=== PATIENT | female | born 1990 | race Caucasian/White ===

== ENCOUNTER 2017-01-09 09:51 | Inpatient (IN) ==
[2017-01-09] MEDS ORDERED: Metoclopramide 10 MG/2 ML VIAL IVP PRN (10:23)
[2017-01-09] MEDS ORDERED: Famotidine 20 MG/2 ML VIAL IVP PRN (10:23)
[2017-01-09] MEDS ORDERED: Naloxone 0.4 MG/ML INJ IVP PRN (10:23)
[2017-01-09] MEDS ORDERED: Ringers Solution, Lactated 1,000 ML IVC SCH (10:30)
[2017-01-09 10:42] LABS: Basophils % 0.4 %; Eosinophils # 0.1 K/mcL (0.0-0.6); Eosinophils % 0.9 %; Hematocrit 36.4 % (35.3-44.9); Hemoglobin 12.1 g/dL (11.5-15.4); Immature Granulocytes % 0.7 % (0-4); Lymphocytes # 1.8 K/mcL (0.6-4.6); Lymphocytes % 20.7 %; Mean Corpuscular HGB Conc 33.2 g/dL (31.6-35.5); Mean Corpuscular Hemoglobin 31.9 pg (28.0-33.3); Mean Platelet Volume 10.6 fL (9.4-12.4); Monocytes # 0.9 K/mcL (0.0-1.3); Monocytes % 10.8 %; Neutrophils # 5.7 K/mcL (1.6-8.9); Platelet Count 176 K/mcL (140-400); Red Blood Count 3.79 M/mcL (3.82-4.97); Red Cell Distribution Width 12.5 % (11.5-14.5); Segmented Neutrophils % 66.5 %
--- NOTE | 2017-01-09 10:47 | OB/GYN History & Physical ---
Date of Encounter: 01/09/17 Time of Encounter: 10:30 Assessment and Plan (1) 39 weeks gestation of Current visit: Yes Status: Acute (2) Elective induction of labor planned Current visit: Yes Status: Acute - NST assessment. - IV fluids. - Cytotec. - Pitocin if needed. - Epidural consult. - UDS. - Clear liquid diet. History of Present Illness Chief complaint: Induction of Labor HPI: Ms. Millan is a 26 year old female at 39 3/7 weeks gestation that presents for induction of labor.She admits to good movement. She denies any vaginal fluid leakage or bleeding. She denies contractions, headaches, vision changes, chest pain, nausea, vomiting, fever, chills, dysuria, or diarrhea. GBS: negative HepBSAg: Non-reactive (07/06/16) HIV Ag/Ab: non-reactive T. Pallidum Ab: negative Rubella Ab: positive Varicella Ab: positive Blood type: A+ Past Med Surg Social Fam HX - Past Medical History Medical history: no medical history Psychiatric history: no psych history - Past Surgical History Surgical History: other - Social History Smoking Status: Never smoker Smokeless Tobacco Status: No Alcohol use: none Drug use: none - Family History Mother Living Status: Hx Family Cancer: Yes Obstetrical History - Pregnancies : 1 Para: 0 Term: 0 : 0 Ab's: 0 Livin Medications and Allergies Vit/Iron Fumarate/FA [ Tablet] 1 each PO DAILY 01/09/17 [ History] 3 Allergy/AdvReac Type Severity Reaction Status Date / Time No Known Allergies Allergy Verified 01/09/17 10:52 Exam - Vital Signs Vital signs: BP: 129/71 HR: 81 FHR: 133 [place]: 38 - Constitutional Constitutional: well developed, well nourished, no acute distress, average body habitus - Lungs Respiratory exam: CTAB - Cardiovascular Cardiovascular exam: RRR, +S1, +S2 - Extremities Extremities exam: full ROM, normal capillary refill, normal inspection, radial pulses palpable and symmetrical Deep Tendon Reflex Grade: 2+ Normal - Cervix Dilation: 3 Effacement: 70 Station: -1 Results Result Diagrams: 01/09/17 10:30 Abnormal lab results RBC 3.79 M/mcL (3.82-4.97) L 01/09/17 10:30 All other labs normal. - VTE Reasons for not Prescribing Prophylaxis: Treatment not Indicated - Low risk for VTE - Attending Attestation I examined this patient and my medical decision-making was reviewed with the Resident Physician. I agree with the documented findings, disposition and treatment plan as described except to the extent set forth below. Deniz France
[2017-01-09 10:52] LABS: Amphetamine Screen,Urine Negative ng/mL (Cutoff=1000); Barbiturate Screen,Urine Negative ng/mL (Cutoff=200); Benzodiazepines Screen,Urine Negative ng/mL (Cutoff=200); Cannabinoid Screen,Urine Negative ng/mL (Cutoff = 50); Cocaine Screen,Urine Negative ng/mL (Cutoff= 300); Opiate Screen,Urine Negative ng/mL (Cutoff=300); Phencyclidine Screen,Urine Negative ng/mL (Cutoff=25)
[2017-01-09] MEDS ORDERED: miSOPROStol 100 MCG TABLET PO STA (10:56)
[2017-01-09] MEDS ORDERED: Terbutaline 1 MG/ML VIAL SQ ONE ×3 (12:50→20:42)
--- NOTE | 2017-01-09 12:58 | Anesthesia Evaluation PreOp ---
Date of Encounter: 01/09/17 Time of Encounter: 12:52 - Past History Planned Operation: shay Cardiac History: Denies any Significant Hx Pulmonary History: Denies Any Significant HX THEORETICAL PHYSICS TEACHER History: Denies Any Significant HX Other Medical History: Denies Any Significant HX Anesthesia History: No Prior Anesthetic Complications, Past Anesthesia (no past anesthetics, no family history of anesthetic problems) : Yes (, 39 plus 3) Alcohol Use: none Drug use: none Medications and Allergies Vit/Iron Fumarate/FA [ Tablet] 1 each PO DAILY 01/09/17 [ History] 3 Allergy/AdvReac Type Severity Reaction Status Date / Time No Known Allergies Allergy Verified 01/09/17 10:52 - Meds/Allergy Pre-op Review Medications Reviewed: Yes Allergies Reviewed: Yes Anesthesia Results - Labs 01/09/17 10:30 Anesthesia Exam O2 Sat Height 1.68 m Weight 85.7 kg Height: 66 Weight: 85 - HEENT Pupil (Motor): Pupils equal Mallampati: II Teeth: Normal Oral Opening: Greater than 3 - THEORETICAL PHYSICS TEACHER LOC: Oriented THEORETICAL PHYSICS TEACHER Motor: Normal RUE, Normal LUE, Normal RLE, Normal LLE, Normal Face THEORETICAL PHYSICS TEACHER Sensory: Normal: RUE, LUE, RLE, LLE, Face - Cardiac Rhythm: Regular Murmur: None JVD: No Carotid Bruit: No - Pulmonary Breath Sounds: bilateral Clear Respiratory Effort: Symmetrical Anesthesia Assess/Plan ASA Score: 2 Modified [place] Scale for Level of Consciousness: Cooperative, oriented, and tranquil Anesthetic Plan: Regional Monitoring Plan: Standard Monitors
--- NOTE | 2017-01-09 15:15 | OB Labor Progress Note ---
Date of Encounter: 01/09/17 Time of Encounter: 15:13 Labor Progress Note - Subjective Subjective: Patient resting in bed. Discussed POC with patient. Patient denies questions or concerns. - Cervix Cervix: 5/70/-1 - Heart Tones Heart Tones: 135 bpm moderate variability +15x15 accels no decels noted. - Alexis Alexis: 2-3 min apart - Interventions Interventions: SVE, AROM small amount of clear fluid noted. IUPC placed without difficulty. - Plan Plan: Continue labor management. Patient may have nubain or epidural when desires
--- NOTE | 2017-01-09 17:29 | OB Labor Progress Note ---
Date of Encounter: 01/09/17 Time of Encounter: 17:27 Labor Progress Note - Subjective Subjective: Patient resting in bed. Patient reports feeling increased pressure. - Cervix Cervix: 6/100/0 - Heart Tones Heart Tones: 135 bpm moderate variability +15x15 accels no decels noted. Cat. 1 tracing. - [place]: 2.5-3 min apart - Interventions Interventions: SVE - Plan Plan: Continue labor management.
[2017-01-09] MEDS ORDERED: *HR* FentaNYL (PF) 100 MCG/2 ML VIAL ONE (19:45)
[2017-01-09] MEDS ORDERED: Epidural Premix (fent/bupiv) 110 ML EP ONE (19:46)
[2017-01-09] MEDS ORDERED: *HR* Ropivacaine/PF 0.2% 10 ML AMPUL ONE (19:46)
--- NOTE | 2017-01-09 20:15 | Anesthesia Procedures ---
Date of Encounter: 01/09/17 Time of Encounter: 20:13 Procedures: Anesthesia - Epidural/Spinal Patient ID/Chart reviewed: Yes Patient examined: Yes OB Eval: Contractions: Non-stressed pattern Consent Obtained: Yes Supplemental Oxygen: None/Room Air Site Prep: Aseptic Technique Patient position: upright Local Anesthetic: Lidocaine 1% Amount of Local Anesthetic used: 3 Touhy Needle Gauge: 18 Touhy Needle Depth (cm): 5 Catheter Depth at Skin (cm): 10 Test Dose (1.5% Lido + Epi): Volume given (mls): 3 Test Dose Result: Positive Loading Dose: Fentanyl (mcg): 100 Loading Dose: Other: 5ml 0.2% ropivicaine, 3ml nss Loading Dose Administered: Thru Touhy Needle Infusion Med: 0.125% Bupivacaine w/ 2 mcg/ml Fentanyl Infusion Rate (mls/hr): [address]: Tegaderm Interspace Used: L3-L4 Loss of Resistance (ESMER): Yes Blood: No CSF: No Paresthesia: No
[2017-01-09] MEDS ORDERED: Oxytocin 20 units/ LR 1000 mL 20 UNIT/1,000 ML BAG IVC ONE (20:47)
--- NOTE | 2017-01-09 22:00 | OB Labor Progress Note ---
Date of Encounter: 01/09/17 Time of Encounter: 23:00 Labor Progress Note - Subjective Subjective: patient doing well not feeling contractions baby better after terbutaline due to tachsystole contractions coming back now - Cervix Cervix: 990/0 - Heart Tones Heart Tones: FHT's 140' reactive - Zuehl Zuehl: contractions every 2-3 min irregular - Plan Plan: continue current care if she does not make cervical change in the next 2 hrs will augment with pitocin
[2017-01-10] MEDS ORDERED: Epidural Premix (fent/bupiv) 110 ML EP ONE (02:25)
--- NOTE | 2017-01-10 04:24 | OB/GYN Procedure Note ---
Delivery - Delivery Date: 01/10/17 Provider: Eloy France Intrapartum events: none Delivery induction: misoprostol Delivery augmentation: rupture of membranes Delivery monitor: external FHT, external uterine, internal FHT, internal uterine Anesthesia: epidural Estimated Blood Loss: 100 - Infant (s) Infant A Delivery Date: 01/10/17 Delivery Time: 03:42 Presentation: vertex Position: KAREEM Route of delivery: Gender: Male Viability: Viable Pounds: 8 Ounces: 10 Weight Gram: 3.91 kg at 1 minute: 8 at 5 mins: 9 Shoulder Dystocia: not encountered Specimens collected: cord blood Placenta: spontaneous Cord: 3 umbilical vessels - Repair Episiotomy: none Laceration Description: Perineal - 1st Degree - Complications Delivery complications: none - Disposition Mom disposition: stable in LDR disposition: stable in LDR - Comments Comments: Patient is a 26-year-old 1 para 0 at 39-0/7 weeks who presented for induction of labor secondary to term with favorable cervix. Patient is 33-4 cm on admission and by mouth Cytotec was placed. Patient was artificially ruptured when she was 5 cm clear fluid noted. Patient progressed appropriately patient became complete and pushed for a short period of time delivering a viable male in right occiput anterior presentation at 0 342. There was no nuchal cord, there was terminal meconium, infant was suctioned on the abdomen, Apgars 8 at 1 minute, 9 at 5 months, weight was 8 lbs. 10 oz. Placenta was then delivered spontaneously with three-vessel cord burring machine operator Dr. France, first press operator PGY1, anesthesia was epidural, estimated blood loss 100 mL. Patient had a first-degree perineal laceration repaired with 3-0 Vicryl in usual fashion cervix and vagina was visualized intact. tolerated the delivery well she will be observed 2 hours before being taken floor.
[2017-01-10] MEDS ORDERED: Ibuprofen 600 MG TABLET PO PRN (05:40)
[2017-01-10] MEDS ORDERED: Acetaminophen 325 MG TABLET PO PRN (05:40)
[2017-01-10] MEDS ORDERED: Oxytocin 20 units/ LR 1000 mL 20 UNIT/1,000 ML BAG IVC SCH (05:40)
[2017-01-10] MEDS ORDERED: Measles/Mumps/Rubella Vacc 0.5 ML VIAL SQ PRN (05:40)
[2017-01-10] MEDS: Prenatal Vit/FA 1 EACH TABLET PO SCH (08:54)
[2017-01-11 05:14] LABS: Basophils # 0.1 K/mcL (0.0-0.2); Basophils % 0.3 %; Eosinophils # 0.2 K/mcL (0.0-0.6); Eosinophils % 1.3 %; Immature Granulocytes % 0.7 % (0-4); Lymphocytes # 3.1 K/mcL (0.6-4.6); Lymphocytes % 18.7 %; Mean Corpuscular HGB Conc 33.2 g/dL (31.6-35.5); Mean Corpuscular Hemoglobin 32.1 pg (28.0-33.3); Mean Corpuscular Volume 96.6 fL (83.0-100.0); Mean Platelet Volume 10.7 fL (9.4-12.4); Monocytes # 1.4 K/mcL (0.0-1.3); Monocytes % 8.5 %; Platelet Count 150 K/mcL (140-400); Red Blood Count 3.21 M/mcL (3.82-4.97); Red Cell Distribution Width 12.9 % (11.5-14.5); Segmented Neutrophils % 70.5 %
[2017-01-11 05:15] LABS: Hemoglobin 10.3 g/dL (11.5-15.4); Neutrophils # 11.6 K/mcL (1.6-8.9)
--- NOTE | 2017-01-11 08:00 | Discharge Summary ---
Date of Encounter: 01/11/17 Time of Encounter: 07:47 - Discharge Diagnosis (1) 39 weeks gestation of Priority: Secondary Status: Resolved (2) Status post vaginal delivery Priority: Primary Status: Acute Comments: Pt meeting all milestones. She desires discharge home today. - Discharge Medications Prescriptions: Ibuprofen [Motrin] 600 mg PO Q6HR PRN #60 tablet PRN Reason: Cramping Docusate [Colace] 100 mg PO BID #30 capsule Ferrous Sulfate 325 mg PO DAILY #30 tablet Home Medications: Vit/Iron Fumarate/FA [ Tablet] 1 each PO DAILY 01/09/17 [ History] Docusate [Colace] 100 mg PO BID #30 capsule 01/11/17 [Rx] Ferrous Sulfate 325 mg PO DAILY #30 tablet 01/11/17 [Rx] Ibuprofen [Motrin] 600 mg PO Q6HR PRN #60 tablet 01/11/17 [Rx] Allergies/Adverse Reactions: 3 Allergy/AdvReac Type Severity Reaction Status Date / Time No Known Allergies Allergy Verified 01/09/17 10:52 Data Procedures and tests throughout hospitalization: Laboratory Tests 01/09/17 01/09/17 01/11/17 10:30 10:30 04:50 WBC 8.5 16.4 H D RBC 3.79 L 3.21 L Hgb 12.1 10.3 L D Hct 36.4 31.0 L MCV 96.0 96.6 MCH 31.9 32.1 MCHC 33.2 33.2 RDW 12.5 12.9 Plt Count 176 150 MPV 10.6 10.7 Immature Gran % 0.7 0.7 Seg Neutrophils % 66.5 70.5 Lymphocytes % 20.7 18.7 Monocytes % 10.8 8.5 Eosinophils % 0.9 1.3 Basophils % 0.4 0.3 Neutrophils # 5.7 11.6 H Lymphocytes # 1.8 3.1 Monocytes # 0.9 1.4 H Eosinophils # 0.1 0.2 Basophils # 0.0 0.1 Immature Plt Fraction 6.0 Urine Opiates Screen Negative Ur Barbiturates Screen Negative Ur Phencyclidine Scrn Negative Ur Amphetamines Screen Negative U Benzodiazepines Scrn Negative Urine Cocaine Screen Negative U Marijuana (THC) Screen Negative Labs on day of discharge: Labs from last 24 hours 01/11/17 04:50 WBC 16.4 H D RBC 3.21 L Hgb 10.3 L D Hct 31.0 L MCV 96.6 MCH 32.1 MCHC 33.2 RDW 12.9 Plt Count 150 MPV 10.7 Immature Gran % 0.7 Seg Neutrophils % 70.5 Lymphocytes % 18.7 Monocytes % 8.5 Eosinophils % 1.3 Basophils % 0.3 Neutrophils # 11.6 H Lymphocytes # 3.1 Monocytes # 1.4 H Eosinophils # 0.2 Basophils # 0.1 Date of admission: 01/09/17 09:51 Primary care physician: Debby Mcdowell CNP Consults: 01/10/17 05:40 Consult to Chemical Process Engineer [CONS] Routine Comment: Vaginal delivery, consult needed Discharging clinician: Taco Khan Anticipated date of discharge: 01/11/17 - Patient Status Disposition: Home, Self-Care Condition: Good Functional capacity at discharge: independent ambulation Overall status at discharge: patient is not back to baseline - Discharge Instructions Instructions: Anemia (GEN) Follow Up With: Debby Mcdowell CNP [Primary Care Provider] - Eloy France DO [Partnered Physician] - - Diet and Activity Activity: resume usual activities as tolerated Diet: regular diet Hospital Course Reason for admission: induction of labor Delivery: Episiotomy: none Laceration: 1st degree Other procedures: none complications: perineal laceration Discharge diagnosis: IUP at term delivered baby: male Hospital course: Ms. Millan is a 26 year old female who presented at 39 3/7 weeks gestation for induction of labor. She admitted to good movement. and denied any vaginal fluid leakage or bleeding. Patient was 33-4 cm on admission and by mouth Cytotec was placed. Patient was artificially ruptured when she was 5 cm clear fluid noted. Patient progressed appropriately patient became complete and pushed for a short period of time delivering a viable male infant in right occiput anterior presentation at 0 342. There was no nuchal cord, there was terminal meconium, was suctioned on the abdomen, Apgars 8 at 1 minute, 9 at 5 months, infant weight was 8 lbs. 10 oz. Placenta was then delivered spontaneously with three-vessel cord hydraulic technician Dr. France, digital marketing assistant PGY1, anesthesia was epidural, estimated blood loss 100 mL. Patient had a first-degree perineal laceration repaired with 3-0 Vicryl in usual fashion cervix and vagina was visualized intact. tolerated the delivery well she will be observed 2 hours before being taken floor. When seen today, she says that she is doing well and in good mood. She says the baby is doing well and that she is currently breast-feeding. She says her vaginal bleeding has improved since the delivery, but still states she was a moderate amount of bleeding. At rest she denies any pain, but says she gets bilateral lower back when when she walks. She has been able to void and has had a bowel movement. She denies any fever, chills, nausea, vomiting, headaches, or vision changes. She has a foloow-up appointment on 01/30/[address] France. - Delivery Date: 01/10/17 Provider: Eloy France Intrapartum events: none Delivery induction: misoprostol Delivery augmentation: rupture of membranes Delivery monitor: external FHT, external uterine, internal FHT, internal uterine Anesthesia: epidural Estimated Blood Loss: 100 - Infant (s) A Infant Delivery Date: 01/10/17 Infant Delivery Time: 03:42 Presentation: vertex Position: KAREEM Route of delivery: Gender: Male Viability: Viable Pounds: 8 Ounces: 10 Weight Gram: 3.91 kg at 1 minute: 8 at 5 mins: 9 Shoulder Dystocia: not encountered Specimens collected: cord blood Placenta: spontaneous Cord: 3 umbilical vessels - Repair Episiotomy: none Laceration Description: Perineal - 1st Degree - Complications Delivery complications: none - Disposition Mom disposition: stable in LDR [place] disposition: stable in LDR Time Attestation: Total time spent providing and/or coordinating discharge services: Exam - Constitutional Vitals: Temp Pulse Resp BP Pulse Ox 98.4 F 75 16 125/76 97 01/10/17 20:10 01/10/17 20:10 01/10/17 20:10 01/10/17 20:10 01/10/17 20:10 General appearance IM: A&O X 3, pleasant, no acute distress, answers questions appropriately - Respiratory Respiratory exam: Present: CTAB - Cardiovascular Cardiovascular exam IM: Present: RRR, +S1, +S2 - GI/Abdominal GI/Abdominal exam IM: normal bowel sounds, soft - Uterine Tone: Firm - Extremities Exam Extremities exam IM: Present: full ROM, normal capillary refill, normal inspection, radial pulses palpable and symmetrical. Absent: cyanotic, pedal edema Additional comments: Pedal pulses intact and symmetrical bilaterally. - Neurological Exam Neurological exam: reflexes normal
[2017-01-11 08:26] VITALS: BP 99/53
[2017-01-11] MEDS: Prenatal Vit/FA 1 EACH TABLET PO SCH (09:13)
== END 2017-01-11 14:54 | disposition home or self-care (01) | DRG 775 ==
LOC: 1NENULAB 09:51 → 1NENUOBS 01-10 07:13
PROVIDERS: ADMIT Obstetrics & Gynecology; ATTEND Obstetrics & Gynecology